=== PATIENT | female | born 1955 | race Caucasian/White ===

== ENCOUNTER → 2017-08-02 16:44 | Outpatient (CLI) | payer MEDICARE ==
[2017-08-02 18:01] LABS: APPEARANCE CLEAR (CLEAR); BILIRUBIN NEGATIVE (NEGATIVE); COLOR YELLOW (YELLOW); GLUCOSE NEGATIVE (NEGATIVE); KETONE NEGATIVE (NEGATIVE); NITRITE NEGATIVE (NEGATIVE); PROTEIN NEGATIVE (NEGATIVE); UROBILINOGEN NORMAL (NORMAL)
== END | disposition home or self-care (01) ==
LOC: D.LABREF 16:44
PROVIDERS: Family Medicine
DX: R33.9 Retention of urine, unspecified (principal); R82.99 Other abnormal findings in urine; R30.0 Dysuria

== ENCOUNTER → 2017-08-04 20:57 | Outpatient (CLI) | payer MEDICARE ==
[2017-08-04 21:44] LABS: APPEARANCE CLEAR (CLEAR); BILIRUBIN NEGATIVE (NEGATIVE); COLOR YELLOW (YELLOW); GLUCOSE NEGATIVE (NEGATIVE); KETONE NEGATIVE (NEGATIVE); NITRITE NEGATIVE (NEGATIVE); PROTEIN NEGATIVE (NEGATIVE); SPECIFIC GRAVITY 1.005 (1.005-1.020); UROBILINOGEN NORMAL (NORMAL)
[2017-08-11 17:11] LABS: AEROBE ID Final report (())
== END | disposition home or self-care (01) ==
LOC: D.LABREF 20:57
PROVIDERS: Family Medicine
DX: N39.3 Stress incontinence (female) (male) (principal); J44.1 Chronic obstructive pulmonary disease with (acute) exacerbation

== ENCOUNTER 2017-08-15 15:28 | Emergency (ER) | payer MEDICARE | END 2017-08-15 19:51 | disposition home or self-care (01) | LOC: D.ER 15:28 | DX: A36.9 Diphtheria, unspecified (principal); Z79.2 Long term (current) use of antibiotics; J44.9 Chronic obstructive pulmonary disease, unspecified; I50.9 Heart failure, unspecified ==

== ENCOUNTER 2017-08-16 15:03 | Outpatient (CLI) | payer MEDICARE | END 2017-08-16 16:20 | disposition home or self-care (01) | LOC: D.OPS 15:03 | DX: N39.0 Urinary tract infection, site not specified (principal) ==

== ENCOUNTER → 2017-08-18 18:14 | Outpatient (CLI) | payer MEDICARE ==
[2017-08-18 20:00] LABS: APPEARANCE CLEAR (CLEAR); BILIRUBIN NEGATIVE (NEGATIVE); COLOR YELLOW (YELLOW); GLUCOSE NEGATIVE (NEGATIVE); KETONE NEGATIVE (NEGATIVE); NITRITE NEGATIVE (NEGATIVE); PROTEIN NEGATIVE (NEGATIVE); SPECIFIC GRAVITY 1.005 (1.005-1.020); UROBILINOGEN NORMAL (NORMAL)
== END | disposition home or self-care (01) ==
LOC: D.LABREF 18:14
PROVIDERS: Family Medicine
DX: R82.90 Unspecified abnormal findings in urine (principal); R10.9 Unspecified abdominal pain

== ENCOUNTER → 2018-01-31 13:32 | Outpatient (CLI) | payer MEDICARE ==
[2018-01-31 15:11] LABS: APPEARANCE CLEAR (CLEAR); BILIRUBIN NEGATIVE (NEGATIVE); COLOR YELLOW (YELLOW); GLUCOSE NEGATIVE (NEGATIVE); KETONE NEGATIVE (NEGATIVE); NITRITE NEGATIVE (NEGATIVE); PROTEIN NEGATIVE (NEGATIVE); SPECIFIC GRAVITY 1.015 (1.005-1.020); UROBILINOGEN NORMAL (NORMAL)
== END | disposition home or self-care (01) ==
LOC: D.LABREF 13:32
PROVIDERS: Family Medicine
DX: I10 Essential (primary) hypertension (principal); J44.1 Chronic obstructive pulmonary disease with (acute) exacerbation